=== PATIENT | male | born 2005 | race African-American/Black ===

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

== ENCOUNTER 2023-09-29 16:10 | Emergency (ER) | payer BC, OTHER ==
[2023-09-29 17:05] LABS: #Basophils 0.1 thou/uL (0.0-0.2); #Monocytes 1.2 thou/uL (0.11-0.59); #Neutrophils 12.4 thou/uL (1.40-6.50); %Basophils 0.3 % (0.0-1.0); %Eosinophils 0.1 % (0.0-10.0); %Lymphocytes 14.1 % (28.0-48.0); %Monocytes 7.7 % (0.0-4.0); %Neutrophils 77.2 % (31.0-61.0); Hematocrit 51.6 % (42.0-52.0); Hemoglobin 17.2 g/dL (14.0-18.0); Mean Corpuscular HGB CONC 33.3 g/dL (32.0-36.0); Mean Corpuscular Hemoglobin 28.5 pg (25.0-35.0); Mean Corpuscular Volume 85.6 fl (78.0-98.0); Mean Platelet Volume 9.9 fL (7.4-10.4); Platelet Count 336 10x3/uL (130-400); RBC Distribution Width 11.9 % (11.5-14.5); Red Blood Cell (RBC) Count 6.03 mill/uL (4.00-5.20)
[2023-09-29 17:11] LABS: Bacteria/HPF None Seen HPF (None Seen); Bilirubin Negative (Negative); Blood, Urine Negative (Negative); CAUTI Indications for Culture Dysuria,urgency,freq; Clarity Clear (Clear); Glucose, Urine (Dipstick) Normal (Negative); Ketone, Urine 10 mg/dL (Negative); Leukocyte Negative Leu/uL (Negative); Nitrite Negative (Negative); Protein, Urine (Dipstick) 200 mg/dL (Neg-Trace); RBC/HPF 0-3 HPF (0-3); Specific Gravity, Urine 1.037 (1.002-1.036); Squamous Epithelial 0-3 HPF (0-3); WBC/HPF 0-3 HPF (0-3); pH, Urine 5.5 (5.0-9.0)
[2023-09-29 17:17] LABS: Urine Culture Reflex No No
[2023-09-29 17:28] LABS: ALT (SGPT) 13 U/L (8-55); AST (SGOT) 25 U/L (5-34); Albumin 5.5 g/dL (3.5-5.0); Alkaline Phosphatase 77 U/L (50-130); Anion Gap 21 mmol/L (10-20); BUN (Urea Nitrogen) 34 mg/dL (8.9-20.6); Bilirubin, Total 1.1 mg/dL (0.2-1.2); Calc. Creatinine Clearance 0 mL/min (70-130); Calcium 10.6 mg/dL (7.8-10.44); Carbon Dioxide 26 mmol/L (22-29); Chloride 96 mmol/L (98-107); Estimated GFR 70; Globulin 3.9 g/dL (2.4-3.5); Glucose 100 mg/dL (70-105); Lipase 8 U/L (8-78); Potassium 3.4 mmol/L (3.5-5.1); Protein, Total 9.4 g/dL (6.0-8.3); Sodium 140 mmol/L (136-145)
[2023-09-29] MEDS ORDERED: Ondansetron PF 4 MG/2 ML Vial ONE (17:39)
[2023-09-29] MEDS ORDERED: diphenhydrAMINE 50 MG/ML VIAL ONE (17:54)
[2023-09-29] MEDS ORDERED: methylPREDNISolone Sod Succ/PF 125 MG/2 ML VIAL ONE (17:55)
[2023-09-29] MEDS ORDERED: Famotidine/PF 20 mg/2ml Vial ONE (17:56)
[2023-09-29] MEDS ORDERED: Cefepime 2 GM VIAL ONE (18:27)
[2023-09-29] MEDS ORDERED: Sodium Chloride 0.9% 100 ML ONE (18:27)
[2023-09-29] MEDS ORDERED: Vancomycin (BATCH) 2 GM in Premix 1 BAG IVPB SCH (18:30)
[2023-09-29 18:40] LABS: SARS-CoV-2 NAA Rapid Test Not Detected (NotDetected)
[2023-09-29 19:24] LABS: Bacteria/HPF None Seen HPF (None Seen); Bilirubin Negative (Negative); Blood, Urine Negative (Negative); CAUTI Indications for Culture Pelvic or flank pain; Clarity Clear (Clear); Glucose, Urine (Dipstick) Normal (Negative); Ketone, Urine 60 mg/dL (Negative); Leukocyte Negative Leu/uL (Negative); Nitrite Negative (Negative); Protein, Urine (Dipstick) 70 mg/dL (Neg-Trace); RBC/HPF 0-3 HPF (0-3); Specific Gravity, Urine 1.031 (1.002-1.036); Squamous Epithelial 0-3 HPF (0-3); Urobilinogen Normal mg/dL (Less than 2); WBC/HPF 0-3 HPF (0-3)
[2023-09-29 19:27] LABS: INR-International Normal Ratio 1.1; PTT 36.4 sec (22.9-36.1); Prothrombin Time 14.3 sec (12.0-14.7)
[2023-09-29 19:32] LABS: Urine Culture Reflex No No
[2023-09-29 19:41] LABS: ALT (SGPT) 13 U/L (8-55); AST (SGOT) 27 U/L (5-34); Albumin 5.7 g/dL (3.5-5.0); Alkaline Phosphatase 78 U/L (50-130); Anion Gap 23 mmol/L (10-20); BUN (Urea Nitrogen) 35 mg/dL (8.9-20.6); Bilirubin, Total 1.1 mg/dL (0.2-1.2); Calc. Creatinine Clearance 0 mL/min (70-130); Calcium 10.5 mg/dL (7.8-10.44); Carbon Dioxide 25 mmol/L (22-29); Chloride 97 mmol/L (98-107); Estimated GFR 66; Globulin 3.6 g/dL (2.4-3.5); Glucose 100 mg/dL (70-105); Potassium 3.7 mmol/L (3.5-5.1); Protein, Total 9.3 g/dL (6.0-8.3); Sodium 141 mmol/L (136-145)
== END 2023-09-30 00:48 | disposition home or self-care (01) ==
LOC: ERS 16:10
DX: N17.9 Acute kidney failure, unspecified (principal); E86.0 Dehydration; D72.829 Elevated white blood cell count, unspecified; N20.0 Calculus of kidney; R11.2 Nausea with vomiting, unspecified; Z20.822 Contact with and (suspected) exposure to COVID-19
CPT/HCPCS: 36415; 71045; 74176; 80053; 81001; 83605; 83690; 85025; 85610; 85730; 87086; 94760; 96361; 96365; 96366; 96368; 96375; J0692; J1200; J2405; J2930; J3370; J3490; S0028

== ENCOUNTER 2023-10-01 13:48 | Emergency (ER) | payer OTHER ==
[2023-10-01] MEDS ORDERED: Haloperidol Lactate 5 MG/ML VIAL ONE (14:50)
[2023-10-01 14:55] LABS: #Monocytes 0.8 thou/uL (0.11-0.59); #Neutrophils 9.5 thou/uL (1.40-6.50); %Basophils 0.3 % (0.0-1.0); %Eosinophils 0.2 % (0.0-10.0); %Lymphocytes 15.5 % (28.0-48.0); %Monocytes 6.4 % (0.0-4.0); %Neutrophils 77.1 % (31.0-61.0); Hematocrit 43.4 % (42.0-52.0); Hemoglobin 14.6 g/dL (14.0-18.0); Mean Corpuscular HGB CONC 33.6 g/dL (32.0-36.0); Mean Corpuscular Hemoglobin 28.7 pg (25.0-35.0); Mean Corpuscular Volume 85.4 fl (78.0-98.0); Platelet Count 283 10x3/uL (130-400); RBC Distribution Width 11.6 % (11.5-14.5); Red Blood Cell (RBC) Count 5.08 mill/uL (4.00-5.20); White Blood Cell (WBC) Count 12.3 10x3/uL (4.8-10.8)
[2023-10-01 16:39] LABS: ALT (SGPT) 13 U/L (8-55); AST (SGOT) 33 U/L (5-34); Albumin 3.9 g/dL (3.5-5.0); Alkaline Phosphatase 47 U/L (50-130); Anion Gap 16 mmol/L (10-20); BUN (Urea Nitrogen) 19 mg/dL (8.9-20.6); Bilirubin, Total 1.1 mg/dL (0.2-1.2); Calc. Creatinine Clearance 0 mL/min (70-130); Calcium 8.5 mg/dL (7.8-10.44); Carbon Dioxide 25 mmol/L (22-29); Chloride 104 mmol/L (98-107); Estimated GFR 129; Globulin 3.4 g/dL (2.4-3.5); Glucose 111 mg/dL (70-105); Magnesium 2.4 mg/dL (1.7-2.2); Protein, Total 7.3 g/dL (6.0-8.3); Sodium 141 mmol/L (136-145)
== END 2023-10-01 17:03 | disposition home or self-care (01) ==
LOC: ERS 13:48
DX: R11.2 Nausea with vomiting, unspecified (principal)
CPT/HCPCS: 80053; 83605; 83735; 85025; J1630

== ENCOUNTER 2023-10-02 10:22 | Emergency (ER) | payer OTHER ==
[2023-10-02] MEDS ORDERED: Dicyclomine 20 MG/2 ML VIAL ONE (11:25)
[2023-10-02] MEDS ORDERED: diphenhydrAMINE 50 MG/ML VIAL ONE (11:25)
[2023-10-02] MEDS ORDERED: Prochlorperazine 10 MG/2 ML VIAL ONE (11:26)
[2023-10-02 11:43] LABS: #Basophils 0.1 thou/uL (0.0-0.2); #Eosinphils 0.1 thou/uL (0.0-0.7); #Monocytes 0.7 thou/uL (0.11-0.59); #Neutrophils 6.4 thou/uL (1.40-6.50); %Basophils 0.6 % (0.0-1.0); %Eosinophils 0.7 % (0.0-10.0); %Lymphocytes 23.7 % (28.0-48.0); %Monocytes 7.6 % (0.0-4.0); %Neutrophils 67.1 % (31.0-61.0); Hematocrit 43.5 % (42.0-52.0); Hemoglobin 14.8 g/dL (14.0-18.0); Mean Corpuscular Volume 85.1 fl (78.0-98.0); Mean Platelet Volume 9.6 fL (7.4-10.4); Platelet Count 292 10x3/uL (130-400); RBC Distribution Width 11.4 % (11.5-14.5); Red Blood Cell (RBC) Count 5.11 mill/uL (4.00-5.20); White Blood Cell (WBC) Count 9.6 10x3/uL (4.8-10.8)
[2023-10-02 12:10] LABS: ALT (SGPT) 14 U/L (8-55); AST (SGOT) 24 U/L (5-34); Albumin 4.5 g/dL (3.5-5.0); Alkaline Phosphatase 56 U/L (50-130); Anion Gap 15 mmol/L (10-20); BUN (Urea Nitrogen) 12 mg/dL (8.9-20.6); Bilirubin, Total 1.2 mg/dL (0.2-1.2); Calc. Creatinine Clearance 0 mL/min (70-130); Calcium 9.3 mg/dL (7.8-10.44); Carbon Dioxide 27 mmol/L (22-29); Chloride 101 mmol/L (98-107); Estimated GFR 129; Globulin 2.9 g/dL (2.4-3.5); Glucose 100 mg/dL (70-105); Magnesium 2.2 mg/dL (1.7-2.2); Potassium 2.8 mmol/L (3.5-5.1); Protein, Total 7.4 g/dL (6.0-8.3); Sodium 140 mmol/L (136-145)
[2023-10-02 12:36] LABS: Troponin I Less than 0.010 ng/mL (< 0.028)
[2023-10-02] MEDS ORDERED: Potassium Chloride 20 MEQ TAB ONE (12:54)
== END 2023-10-02 12:03 | disposition home or self-care (01) ==
LOC: ERS 10:22
DX: E87.6 Hypokalemia (principal); F12.988 Cannabis use, unspecified with other cannabis-induced disorder
CPT/HCPCS: 80053; 83605; 83735; 84484; 85025; 93005; 96360; 96361; 96372; J0780; J1200; J1630

== ENCOUNTER 2024-11-07 09:22 | Emergency (ER) | payer BC, SELFPAY ==
[2024-11-07] MEDS ORDERED: Lidocaine 1% w/Epinephrine 1:100K 20 ML VIAL ONE (10:05)
[2024-11-07] MEDS ORDERED: Bacitracin 1 PK ONE (11:05)
[2024-11-07] MEDS ORDERED: Naproxen 500 MG TAB ONE (11:05)
== END 2024-11-07 11:09 | disposition home or self-care (01) ==
LOC: ERS 09:22
DX: L02.412 Cutaneous abscess of left axilla (principal)
CPT/HCPCS: 10060; 87070; 87077; 87205

== ENCOUNTER 2024-12-04 12:52 | Emergency (ER) | payer BC, MEDICAID, SELFPAY ==
[2024-12-04] MEDS ORDERED: Ibuprofen 800 MG TAB ONE (13:50)
== END 2024-12-04 14:10 | disposition home or self-care (01) ==
LOC: ERS 12:52
DX: M25.562 Pain in left knee (principal); V89.2XXA Person injured in unspecified motor-vehicle accident, traffic, initial encounter; Y93.89 Activity, other specified
CPT/HCPCS: 99283